=== PATIENT | female | born 1975 | race African-American/Black ===

== ENCOUNTER 2017-04-19 05:29 | Emergency (ER) | payer SELFPAY ==
[~2017-04-19] VITALS: Ht 154.9 cm; Wt 74.8 kg
[~2017-04-19 05:29] MED LIST: ATOR40TA59 PO; HYDR25TA9 PO; LUBI8CAP4 PO; PANT40TA3 PO
[2017-04-19 05:45] VITALS: BP 122/68
[2017-04-19] MEDS ORDERED: ONDANSETRON PF 4 MG/2 ML VIAL. IV ONE (05:45)
[2017-04-19] MEDS ORDERED: IV NORMAL SALINE 1000ML BAG 1,000 ML IV SCH (05:45)
[2017-04-19 05:54] LABS: BILIRUBIN,URINE NEGATIVE (NEG); GLUCOSE,URINE NEGATIVE (NEG); NITRITE,URINE NEGATIVE (NEG); PH,URINE 6.5; PROTEIN,URINE 30 mg/dL (NEG-TRACE); UROBILINOGEN,URINE 0.2 mg/dL (0.2 mg/dL)
[2017-04-19 05:56] LABS: BASO # 0.1 x10^3/uL (0.0-0.2); BASO % 2 % (0-3); EOS % 1 % (0-3); HEMATOCRIT 27.6 % (36.0-47.0); HEMOGLOBIN 8.8 g/dL (12.0-15.5); LYMPH # 1.1 x10^3/uL (1.0-4.8); LYMPH % 30 % (24-48); MEAN CORPUSCULAR HEMOGLOBIN 22 pg (25-35); MEAN CORPUSCULAR HGB CONC 32 g/dL (31-37); MEAN CORPUSCULAR VOLUME 68 fL (79-100); MONO % 14 % (0-9); NEUT % 53 % (31-73); PLATELET COUNT 309 x10^3/uL (140-400); RED BLOOD COUNT 4.03 x10^6/uL (3.50-5.40); RED CELL DISTRIBUTION WIDTH 19.3 % (11.5-14.5); WHITE BLOOD COUNT 3.7 x10^3/uL (4.0-11.0)
[2017-04-19 06:05] LABS: BACTERIA,URINE MANY /HPF (0-FEW); SQUAMOUS EPITHELIAL CELL,UR MANY /LPF
[2017-04-19] MEDS ORDERED: ONDA4TAB10 PO (06:17)
--- NOTE | 2017-04-19 06:18 | PHYS DOC ---
Past Medical History Past Medical History: Anxiety, Depression, High Cholesterol, Hypertension Additional Past Medical Histor: panic attacks, obesity Past Surgical History: Tubal ligation Additional Past Surgical Histo: Additional Information: non smoker Alcohol Use: Heavy Drug Use: Marijuana Adult General Chief Complaint Chief Complaint: FEVER HPI HPI Patient is a 42 year old female who presents with complaint of nausea and vomiting and diarrhea. Her grandchildren had all been sick. No flu vaccine. It all started yesterday. Greater than 10 stools daily; no blood. All watery. Vomiting three times. Mild abdominal cramping. Review of Systems Review of Systems Constitutional: POS fever but no chills Eyes: Denies change in visual acuity, redness, or eye pain HENT: POS nasal congestion but no sore throat Respiratory: Slight cough but no shortness of breath Cardiovascular: No chest pain GI: Mild abdominal cramping, POS nausea, vomiting, NO bloody stools but diarrhea x 10 days Musculoskeletal: Denies back pain or joint pain Integument: Denies rash or skin lesions Neurologic: Denies headache, focal weakness or sensory changes All other systems were reviewed and found to be within normal limits, except as documented in this note. Current Medications Current Medications Current Medications Medications (Trade) Dose Ordered Sig/Alok Start Time Stop Time Status Last Admin Dose Admin Ondansetron HCl (Zofran) 4 mg 1X ONCE 04/19/17 05:45 04/19/17 05:47 DC 04/19/17 06:02 4 MG Sodium Chloride 1,000 ml @ 1,000 mls/hr Q1H 04/19/17 05:45 04/19/17 06:44 DC 04/19/17 06:02 1,000 MLS/HR Allergies Allergies Allergies Coded Allergies Type Severity Reaction Last Updated Verified No Known Drug Allergies 11/15/15 No Physical Exam Physical Exam Constitutional: Well developed, well nourished, no acute distress, non-toxic appearance. HENT: Normocephalic, atraumatic, bilateral external ears normal, oropharynx moist, no oral exudates, nose normal. Eyes: PERRLA, EOMI, conjunctiva normal, no discharge. Neck: Normal range of motion, no tenderness, supple, no stridor. Cardiovascular:Heart rate regular rhythm, no murmur Lungs & Thorax: Bilateral breath sounds clear to auscultation Abdomen: Bowel sounds normal, soft, mild tenderness no rebound or guarding, no masses, no pulsatile masses. Skin: Warm, dry, no erythema, no rash. Back: No tenderness, no CVA tenderness. Extremities: No tenderness, no cyanosis, no clubbing, ROM intact, no edema. Neurologic: Alert and oriented X 3, normal motor function, normal sensory function, no focal deficits noted. Psychologic: Affect normal, judgement normal, mood normal. Current Patient Data Vital Signs Vital Signs Date Time Temp Pulse Resp B/P (MAP) Pulse Ox O2 Delivery O2 Flow Rate FiO2 04/19/17 05:45 98.3 79 18 122/68 (86) 100 Room Air 98.3 Lab Values Laboratory Tests Test 04/19/17 05:35 04/19/17 05:45 04/19/17 05:55 Urine Collection Type Unknown Urine Color Yellow Urine Clarity Turbid Urine pH 6.5 Urine Specific [place] >=1.030 Urine Protein 30 mg/dL (NEG-TRACE) Urine Glucose (UA) Negative mg/dL (NEG) Urine Ketones (Stick) Trace mg/dL (NEG) Urine Blood Negative (NEG) Urine Nitrite Negative (NEG) Urine Bilirubin Negative (NEG) Urine Urobilinogen Dipstick 0.2 mg/dL (0.2 mg/dL) Urine Leukocyte Esterase Moderate (NEG) Urine RBC 1-2 /HPF (0-2) Urine WBC 1-4 /HPF (0-4) Urine Squamous Epithelial Cells Many /LPF Urine Bacteria Many /HPF (0-FEW) Urine Mucus Marked /LPF White Blood Count 3.7 x10^3/uL (4.0-11.0) L Red Blood Count 4.03 x10^6/uL (3.50-5.40) Hemoglobin 8.8 g/dL (12.0-15.5) L Hematocrit 27.6 % (36.0-47.0) L Mean Corpuscular Volume 68 fL (79-100) L Mean Corpuscular Hemoglobin 22 pg (25-35) L Mean Corpuscular Hemoglobin Concent 32 g/dL (31-37) Red Cell Distribution Width 19.3 % (11.5-14.5) H Platelet Count 309 x10^3/uL (140-400) Neutrophils (%) (Auto) 53 % (31-73) Lymphocytes (%) (Auto) 30 % (24-48) Monocytes (%) (Auto) 14 % (0-9) H Eosinophils (%) (Auto) 1 % (0-3) Basophils (%) (Auto) 2 % (0-3) Neutrophils # (Auto) 1.9 x10^3uL (1.8-7.7) Lymphocytes # (Auto) 1.1 x10^3/uL (1.0-4.8) Monocytes # (Auto) 0.5 x10^3/uL (0.0-1.1) Eosinophils # (Auto) 0.0 x10^3/uL (0.0-0.7) Basophils # (Auto) 0.1 x10^3/uL (0.0-0.2) Platelet Estimate Pending POC Urine HCG, Qualitative Hcg negative (Negative) Sodium Level 139 mmol/L (136-145) Potassium Level 3.3 mmol/L (3.5-5.1) L Chloride Level 104 mmol/L (98-107) Carbon Dioxide Level 25 mmol/L (21-32) Anion Gap 10 (6-14) Blood Urea Nitrogen 11 mg/dL (7-20) Creatinine 1.0 mg/dL (0.6-1.0) Estimated GFR (Cockcroft-Gault) 74.3 BUN/Creatinine Ratio 11 (6-20) Glucose Level 98 mg/dL (70-99) Calcium Level 8.3 mg/dL (8.5-10.1) L Total Bilirubin 0.3 mg/dL (0.2-1.0) Aspartate Amino Transferase (AST) 26 U/L (15-37) Alanine Aminotransferase (ALT) 14 U/L (14-59) Alkaline Phosphatase 56 U/L (46-116) Total Protein 8.3 g/dL (6.4-8.2) H Albumin 3.5 g/dL (3.4-5.0) Albumin/Globulin Ratio 0.7 (1.0-1.7) L Lipase 65 U/L (73-393) L Influenza Type A Antigen Negative (NEGATIVE) Influenza Type B Antigen Negative (NEGATIVE) Laboratory Tests 04/19/17 05:45 Laboratory Tests 04/19/17 05:45 Course & Med Decision Making Course & Med Decision Making Patient evaluated upon arrival. IV NS, IV Zofran. Lab reviewed; UCG negative. CBC is consistent with prior values. She has chronic leukopenia and anemia. Care of patient turned over at shift change. Reviewed findings and plan on discharge home with chapo. 751: Patient was accidentally dismissed prior to my evaluation. SHe was reported to me as feeling better. I have reviewed all of the labs -- there were no acute troubling lab values. . She is currently gone. Charge will contact her via phone to check on her. A message is left with her to return the phone call. The dismissing nurse tells me that he did go over labs results with her and that she was feeling better. Dx: is vomiting. Dragon Disclaimer Dragon Disclaimer This electronic medical record was generated, in whole or in part, using a voice recognition dictation system. Departure Departure Impression: Primary Impression: Viral syndrome Additional Impressions: Nausea, vomiting and diarrhea Anemia Disposition: HOME, SELF-CARE Condition: STABLE Referrals: NO PCP (PCP) Patient Instructions: Anemia, FAQs, Diarrhea, Viral Syndrome Additional Instructions: YOU HAVE ANEMIA (IT WAS ON YOUR PRIOR LAB). TAKE A VITAMIN WITH IRON. YOU WERE GIVEN FLUIDS HERE AND NAUSEA MEDS. IF YOUR SYMPTOMS WORSEN OR YOU DEVELOP BLOODY STOOL YOU NEED TO RETURN. Scripts Ondansetron (ZOFRAN ODT) 4 Mg Tab.rapdis 4 MG PO BID Y for NAUSEA/VOMITING for 7 Days, #14 TAB Prov: REINALDO WILL MD 04/19/17 Problem Qualifiers Additional Impressions: Anemia Anemia type: iron deficiency Iron deficiency anemia type: unspecified iron deficiency Qualified Codes: D50.9 - Iron deficiency anemia, unspecified REINALDO WILL MD Apr 19, 2017 06:18 CARRIE GARZA MD Apr 19, 2017 07:55
[2017-04-19 06:24] LABS: OBC FLU VALID
[2017-04-19 06:41] LABS: CALCIUM 8.3 mg/dL (8.5-10.1); GFR 74.3; POTASSIUM 3.3 mmol/L (3.5-5.1)
[2017-04-19 06:48] LABS: ALBUMIN 3.5 g/dL (3.4-5.0); ALBUMIN/GLOBULIN RATIO 0.7 (1.0-1.7); TOTAL BILIRUBIN 0.3 mg/dL (0.2-1.0); TOTAL PROTEIN 8.3 g/dL (6.4-8.2)
[2017-04-19 09:38] LABS: HYPOCHROMIA PRESENT; PLT ESTIMATE ADEQUATE (ADEQUATE); POLYCHROMASIA PRESENT
[2017-04-19 09:39] LABS: ANISOCYTOSIS SLIGHT; MICROCYTOSIS MOD
[2017-04-19 09:40] LABS: TARGET CELLS OCC
== END 2017-04-19 07:41 | disposition home or self-care (01) ==
LOC: ER 05:29
DX: B34.9 Viral infection, unspecified (principal); D50.9 Iron deficiency anemia, unspecified; R10.9 Unspecified abdominal pain; F32.9 Major depressive disorder, single episode, unspecified; I10 Essential (primary) hypertension; F41.0 Panic disorder [episodic paroxysmal anxiety]; F12.10 Cannabis abuse, uncomplicated; F10.20 Alcohol dependence, uncomplicated; E78.00 Pure hypercholesterolemia, unspecified; E66.9 Obesity, unspecified; Z68.31 Body mass index [BMI] 31.0-31.9, adult
CPT/HCPCS: 36415; 80053; 81001; 81025; 83690; 85025; 87086; 87804; 96361; 96374; 99285; J2405; J7030

== ENCOUNTER 2018-09-08 08:37 | Emergency (ER) | payer SELFPAY ==
[~2018-09-08] VITALS: Ht 154.9 cm; Wt 74.8 kg
[~2018-09-08 08:37] MED LIST changes: +HYDR-2145 PO; -HYDR25TA9 PO; +ONDA4TAB10 PO
[2018-09-08] MEDS ORDERED: LIDO:MAALOX 1:1 20 ML SINGLE DOSE. ONE (08:54)
[2018-09-08] MEDS ORDERED: LIDO:MAALOX 1:1 20 ML SINGLE DOSE. SWSW ONE (09:00)
[2018-09-08] MEDS ORDERED: FAMOTIDINE 20 MG TABLET. PO ONE (09:00)
[2018-09-08] MEDS ORDERED: METOCLOPRAMIDE 10 MG TABLET. PO ONE (09:00)
[2018-09-08] MEDS ORDERED: OMEP20TA63 PO (09:03)
[2018-09-08] MEDS ORDERED: ONDA4TAB7 PO (09:03)
--- NOTE | 2018-09-08 09:04 | PHYS DOC ---
Past Medical History Past Medical History: Anxiety, Depression, GERD, High Cholesterol, Hypertension Additional Past Medical Histor: panic attacks, obesity Past Surgical History: Tubal ligation Additional Past Surgical Histo: Alcohol Use: Heavy Drug Use: Marijuana Adult General Chief Complaint Chief Complaint: NAUSEA/VOMITING/DIARRHA HPI HPI 43-year-old female with a history of gastroesophageal reflux disease presents with epigastric burning, reflux and some vomiting. She states she normally takes Prilosec for this started a new job and ran out. She doesn't have insurance. She states that she's been seen by GI in the past and they just start her on H2 blo ckers and proton pump inhibitors. She denies any melena or hematemesis. She does state that she's been unable to keep anything down secondary to the fact that she's refluxing so bad at this time.] Review of Systems Review of Systems Constitutional: Denies fever or chills [] Eyes: Denies change in visual acuity, redness, or eye pain [] HENT: Denies nasal congestion or sore throat [] Respiratory: Denies cough or shortness of breath [] Cardiovascular: No additional information not addressed in HPI [] GI: Per history of present illness[] : Denies dysuria or hematuria [] Musculoskeletal: Denies back pain or joint pain [] Integument: Denies rash or skin lesions [] Neurologic: Denies headache, focal weakness or sensory changes [] Endocrine: Denies polyuria or polydipsia [] All other systems were reviewed and found to be within normal limits, except as documented in this note. Current Medications Current Medications Current Medications Medications (Trade) Dose Ordered Sig/Alok Start Time Stop Time Status Last Admin Dose Admin Multi-Ingredient Mouthwash/Gargle (Gi Cocktail) 20 ml STK-MED ONCE 09/08/18 08:54 09/08/18 08:55 DC Allergies Allergies Allergies Coded Allergies Type Severity Reaction Last Updated Verified No Known Drug Allergies 11/15/15 No Physical Exam Physical Exam Constitutional: Well developed, well nourished, no acute distress, non-toxic appearance. [] HENT: Normocephalic, atraumatic, bilateral external ears normal, oropharynx moist, no oral exudates, nose normal. [] Eyes: PERRLA, EOMI, conjunctiva normal, no discharge. [] Neck: Normal range of motion, no tenderness, supple, no stridor. [] Cardiovascular:Heart rate regular rhythm, no murmur [] Lungs & Thorax: Bilateral breath sounds clear to auscultation [] Abdomen: Mild epigastric tenderness to palp no rebound or guarding. [] Skin: Warm, dry, no erythema, no rash. [] Back: No tenderness, no CVA tenderness. [] Extremities: No tenderness, no cyanosis, no clubbing, ROM intact, no edema. [] Neurologic: Alert and oriented X 3, normal motor function, normal sensory function, no focal deficits noted. [] Psychologic: Anxious. [] Current Patient Data Lab Values Laboratory Tests Test 09/08/18 08:47 POC Urine HCG, Qualitative Hcg negative (Negative) EKG EKG [] Radiology/Procedures Radiology/Procedures [] Course & Med Decision Making Course & Med Decision Making Pertinent Labs and Imaging studies reviewed. (See chart for details) [ED course: Evaluation reveals a 43-year-old female with reflux. She was given Pepcid, GI cocktail and Reglan during her stay in the emergency department. I will prescribe her an H2 surya to take daily. Also give her some Zofran to take in case the nausea progresses. Patient is safe for discharge home.] Dragon Disclaimer Dragon Disclaimer This electronic medical record was generated, in whole or in part, using a voice recognition dictation system. Departure Departure Impression: Primary Impression: Gastroesophageal reflux Additional Impression: Vomiting Disposition: HOME, SELF-CARE Condition: STABLE Referrals: NO PCP (PCP) Patient Instructions: Diet for Gastroesophageal Reflux Disease, Adult, Gastritis, Adult, Gastroesophageal Reflux Disease, Adult Additional Instructions: Follow-up with a GI specialist as we discussed. Return to the emergency department with any new or concerning symptoms Scripts Ondansetron Hcl (ZOFRAN) 4 Mg Tablet 1 TAB PO Q8HRS PRN for NAUSEA, #20 TAB Prov: IVETTE MARTINEZ DO 09/08/18 Omeprazole Magnesium (PRILOSEC OTC) 20 Mg Tablet. 1 TAB PO DAILY, #90 TAB 3 Refills Prov: IVETTE MARTINEZ DO 09/08/18 Problem Qualifiers Primary Impression: Gastroesophageal reflux Esophagitis presence: esophagitis presence not specified Qualified Codes: K21.9 - Gastro-esophageal reflux disease without esophagitis Additional Impression: Vomiting Vomiting type: unspecified Vomiting Intractability: non-intractable Nausea presence: with nausea Qualified Codes: R11.2 - Nausea with vomiting, unspecified IVETTE MARTINEZ DO September 08, 2018 09:03
[2018-09-08 09:18] VITALS: BP 135/69
[2018-09-08] MEDS ORDERED: PROCHLORPERAZINE 10 MG/2 ML VIAL. IM ONE (09:45)
== END 2018-09-08 09:44 | disposition home or self-care (01) ==
LOC: ER 08:37
DX: K21.9 Gastro-esophageal reflux disease without esophagitis (principal); R11.2 Nausea with vomiting, unspecified; F41.9 Anxiety disorder, unspecified; F32.9 Major depressive disorder, single episode, unspecified; E78.00 Pure hypercholesterolemia, unspecified; I10 Essential (primary) hypertension; Z98.51 Tubal ligation status; F10.20 Alcohol dependence, uncomplicated; Y90.9 Presence of alcohol in blood, level not specified
CPT/HCPCS: 81025; 96372; 99284; J0780; J8597